=== PATIENT | female | born 1995 | race Caucasian/White ===

== ENCOUNTER 2021-05-03 13:39 | Outpatient (CLI) | payer BC, SELFPAY ==
--- NOTE | ~2021-05-03 | MMUS_ITS ---
EXAMINATION: MM diagnostic silvana BI w jami, US breast RT complete HISTORY: Palpable right breast lump TECHNIQUE: Additional 3-D tomosynthesis images of the breasts were performed and synthetic 2-D images were generated. CAD analysis was submitted and interpreted. High resolution complete right breast ul trasound was performed. COMPARISON: None BREAST PARENCHYMAL COMPOSITION: The breasts are heterogenously dense, which may obscure small masses. FINDINGS: MAMMOGRAPHIC FINDINGS: In the area of palpable concern in the mid outer aspect of the right breast, middle third there is a mass measuring approximately 1.7 cm. No suspicious calcifications or architectural distortion. There is a benign-appearing mass in the medial aspect of the left breast on CC view with central lucency, c ompatible with intramammary lymph node or cyst. ULTRASOUND: Complete right breast ultrasound: At 8:00, 8 cm from the nipple, there is an irregular shaped hypoech oic mass measuring 1.8 x 1.4 x 1.1 cm. There is mixed posterior attenuation. There is internal vascul arity. Parallel orientation. This corresponds to the mammographic finding. IMPRESSION: 1. Lobulated hypoechoic right breast mass at 8:00, 8 cm from the nipple measuring 1.8 cm greatest dim ension. 2. Ultrasound-guided right breast biopsy recommended. BI-RADS category 4, suspicious findings. Reviewed, dictated and finalized at location A. HOUSE SUPERVISOR IMPRESSION: 1. Lobulated hypoechoic right breast mass at 8:00, 8 cm from the nipple measuri ng 1.8 cm greatest dimension. 2. Ultrasound-guided right breast biopsy recommended. BI-RADS category 4, suspicious findings.
== END 2021-05-03 13:40 | disposition home or self-care (01) ==
LOC: ANHIMG 13:44
PROVIDERS: PCP Family Medicine; Visit Provider Family Medicine
DX: R92.8 Other abnormal and inconclusive findings on diagnostic imaging of breast (principal)
CPT/HCPCS: 76641; 77062; 77066; G0279

== ENCOUNTER 2021-05-16 09:57 | Outpatient (CLI) | payer BC, SELFPAY ==
--- NOTE | ~2021-05-16 | MMUS_ITS ---
EXAMINATION: US breast biopsy RT w image, MM post biopsy invasive RT DATE: 05/16/2021 11:06 (accession [id number]), 05/16/2021 11:04 (accession [id number]) INDICATION: Indeterminate mass at 8:00 location of the right breast. Ultrasound-guided core biopsy is requested to evaluate for malignancy. TECHNIQUE AND FINDINGS: The risks and potential benefits of the procedure were discussed with the patient including bleeding and infection. A time out was performed. The skin of the right breast was prepared and draped in usua l sterile fashion. 1% lidocaine was used for superficial anesthesia. 1% lidocaine with epinephrine wa s used for deep anesthesia. A vacuum-assisted biopsy gun needle was advanced through to the outer edge of the region of interest from an inferior approach utilizing sonographic guidance. A total of five tissue core samples were ob tained through the lesion. A tissue marker clip was then placed at the biopsy site. Hemostasis was ac hieved. A sterile bandage was applied. The patient tolerated procedure well and there was no evidence of immediate complication. The patient was given verbal instructions to return to the Emergency Department in the event of severe breast pa in or rapid breast enlargement. A two view right breast mammogram was obtained to document tissue mar ker clip placement. IMPRESSION: 1. Successful ultrasound-guided vacuum-assisted biopsy of right breast mass with tissue marker placem ent. Reviewed, dictated and finalized at location A. LAGE CLERK IMPRESSION: 1. Successful ultrasound-guided vacuum-assisted biopsy of right breast mass wit h tissue marker placement.
== END 2021-05-16 09:58 | disposition home or self-care (01) ==
LOC: ANHIMG 10:01
PROVIDERS: PCP Family Medicine; Visit Provider Family Medicine
DX: N63.10 Unspecified lump in the right breast, unspecified quadrant (principal)
CPT/HCPCS: 19083; 88305; A4648

== ENCOUNTER 2025-04-28 12:09 | Emergency (ER) | payer BC, SELFPAY ==
--- NOTE | ~2025-04-28 | US_ITS ---
EXAMINATION: US OB <=14 wk fetus w TV DATE: 04/28/2025 14:24 INDICATION: of indeterminate location TECHNIQUE: Real-time pelvic ultrasound utilizing both a transvaginal and transabdominal probe was performed. The interpreting radiologist was not present for the study. COMPARISON: None. FINDINGS: The uterus measures 8.0 x 4.6 x 5.4 cm. There is an intrauterine gestational sac with double deciduous sign. There is a peripheral 1 mm echogenic focus within the gestational sac which could represent a small pole and/or yolk sac. The mean sac diameter measures 5 mm, which correlates with an estimated gestational age of 5 weeks and 2 days. There is a 1.8 cm hypoechoic subserosal fibroid along the posterior aspect of the mid uterine body. There is a second 1.6 similar hypoechoic fibroid at the left anterior uterine fundus. Trace amount of anechoic fluid within the endocervical canal which measures 2.6 cm in length. The right ovary measures 2.5 x 2.3 x 1.6 cm. The left ovary measures 3.6 x 1.8 x 2.9 cm. Vascular flow identified in both ovaries on color Doppler. There is no free fluid in the pelvis. IMPRESSION: 1. Single intrauterine gestational sac with possible 1 mm pole. 2. Gestational age by ultrasound based upon 5 mm mean sac diameter of 5 weeks 2 day(s) +/- 3 day(s) with ultrasound estimated date of delivery (MAMIE) of 12/27/2025. 3. A couple uterine fibroids. Reviewed, dictated and finalized at location A. YARD ELECTRICAL PERSON IMPRESSION: 1. Single intrauterine gestational sac with possible 1 mm pole. 2. Gestational age by ultrasound based upon 5 mm mean sac diameter of 5 weeks 2 day(s) +/- 3 day(s) with ultrasound estimated date of delivery (MAMIE) of 12/28/19 26. 3. A couple uterine fibroids.
[2025-04-28 12:39] VITALS: BP 147/94; PULSE 85; RESP 18; TEMP 36.4; O2SAT 100
[2025-04-28 12:55] LABS: BEDSIDEPREGUCG Positive (Negative)
--- OUTSIDE RECORDS SUMMARY | 2025-04-28 12:57 | XMS_ITS | Clinical Summary ---
Author Organization [facility] [employer] Address [address] [place] [address] Care Team Providers Care Instructional Systems Specialist Name Role Phone Roma Ballard MD Primary Care Provider Source Comments [facility],non-owned Affiliates and Associated Physician Practices is amultiple site organization consisting of ambulatory clinics and hospital sitesin [place], [place], [place] and [place]. This disclosure is being madepursuant to the Care Everywhere program and may not contain all information available regarding this patient. Last updated 18.[facility] Allergies Active Allergy Reactions Criticality Noted Date Comments Other Anaphylaxis,Itching, Eye Itching High 07/30/2010 Grass, dust mites, animals, pollen Medications * Be aware that medications may not be up to date on this document. Alwaysverify current medications with the patient. guaifenesin-code ine (ROBITUSSIN AC) 100-10 MG/5ML syrup Take 10 mL by mouth every 6 hours as needed for Cough. 240 mL 0 07/31/2010 Active Active Problems Problem Noted Date Diagnosed Date Pneumomediastinum 07/30/2010 Overview (07/31/2010): Assessment: 15yo Female with h/o asthma with spontaneous pneumomediastinum reported on OSH CXR. Clinically hemodynamically stable upon arrival. Did well overnight without acute events. Remains stable. CP stable. Still no crepitus on exam. CXR this AM continues to demonstrate mediastinal air (not large amount). Plan: Continue Albuterol PRN at home PFTs/ peak flows should be done in 1 month Consider need for pulm consult if recurs. Family History Medical History Relation Name Comments Asthma Father Other Father h/o pleurisy as a child Diabetes Maternal Grandfather Eczema Other Relation Name Status Comments Father Maternal Grandfather Other Social History Tobacco Use Types Packs/Day Years Used Date Smoking Tobacco: Never Assessed Comments Unknown Sex and Gender Information Value Date Recorded Sex Assigned at Not on file Legal Sex Female 10:05 AM GOVERNMENT AUDITOR Gender Identity Not on file Sexual Orientation Not on file Last Filed Vital Signs Vital Sign Reading Time Taken Comments Blood Pressure 98/60 07/31/2010 7:35 AM GOVERNMENT AUDITOR Pulse 62 07/31/2010 7:35 AM GOVERNMENT AUDITOR Temperature 36.2 C (97.2 F) 07/31/2010 7:35 AM GOVERNMENT AUDITOR Respiratory Rate 18 07/31/2010 7:35 AM GOVERNMENT AUDITOR Oxygen Saturation 100% 07/31/2010 7:35 AM GOVERNMENT AUDITOR Inhaled Oxygen Concentration - - Weight 66.5 kg (146 lb 9.6 oz) 07/30/2010 6:00 P M GOVERNMENT AUDITOR Height 159 cm (5' 2.6) 07/30/2010 6:00 PM GOVERNMENT AUDITOR Body Mass Index 26.3 07/30/2010 6:00 PM GOVERNMENT AUDITOR Plan of Treatment Health Maintenance Due Date Last Done Comments HIV SCREENING 02/17/2008 HEPATITIS C SCREENING 02/12/2011 DTAP/TDAP/TD VACCINES (1 - Tdap) 02/17/2012 HEPATITIS B VACCINE (1 of 3 - 19+ 3-dose series) 02/17/2012 PAP SMEAR 2014 HPV VACCINE (1 - 3-dose SCDM series) 02/17/2020 Cervical Cancer Screening 2023 PAP with HPV 2023 DEPRESSION SCREENING 05/28/2024 COVID-19 VACCINE ( - 2024-2 6 season) 2025 INFLUENZA VACCINE (#1) 2025 ZOSTER VACCINE (1 of 2) 2043 HIB VACCINE Aged Out No longer eligi ble based on patient's age to complete this topic MENINGOCOCCAL (Group B) VACC INE SHARED DECISION-MAKING Aged Out No longer eligibl e based on patient's age to complete this topic MENINGOCOCCAL GROUPS A/C/Y/W VACCINE Aged Out No longer eligible b ased on patient's age to complete this topic PNEUMOCOCCAL VACCINE Aged Out No long er eligible based on patient's age to complete this topic Care Teams Instructional Systems Specialist Relationship Specialty Start Date End Date Roma Ballard MD [address] [place] [address] PCP - General 07/30/10
--- OUTSIDE RECORDS SUMMARY | 2025-04-28 12:57 | XMS_ITS | Clinical Summary ---
Author Organization [facility] Address [address] [place] [id number] Care Team Providers Care Cake Puncher Name Role Phone Unavailable Primary Care Provider Unavailabl e Social History Tobacco Use Types Packs/Day Years Used Date Smoking Tobacco: Never Assessed Comments Unknown Sex and Gender Information Value Date Recorded Sex Assigned at Not on file Legal Sex Female 3:03 PM ENVIRONMENTAL REMEDIATION CONSULTANT Gender Identity Not on file Sexual Orientation Not on file Plan of Treatment Health Maintenance Due Date Last Done Comments Hepatitis C Virus (HCV) Screening 1993 Hepatitis B Immunization (1 of 3 - 19+ 3-dose series) 02/17/2012 Pap Smear 2014 Human Papillomavirus (HPV) Immunization (1 - 3-dose SCDM series) 02/17/2020 Cervical Cancer Screening (CCS) 2023 HPV/Cotest 2023 Influenza Immunization (#1) 2025 SARS-COV-2 Immunization ( season) 2025 Respiratory Syncytial Virus (RSV) Immunization (Adult) (1 - 1-dose 75+ series) 02/17/2068 DTaP/Tdap/Td Immunization Discontinued 12/20/2017 TdaP Immunization Completed 12/20/2017 Meningococcal Immunization (ACWY) Aged Out No longer eligible based on patient's age to complete this topic Pneumococcal Immunization Combined Aged Out No longer eligible based on patient's age to complete this topic Rotavirus Immunization Aged Out No lo nger eligible based on patient's age to complete this topic
[2025-04-28 13:06] LABS: Add Urine Microscopic? YES; Appearance Urine Clear (Clear); Glucose Urine UA Negative (Negative); Leukocyte Esterase Ur Negative LEU/UL (Negative); Nitrate Urine Negative (Negative); Non Pathogenic Casts 0-2; Specific Grav Ur 1.015 (1.001-1.035)
--- NOTE | 2025-04-28 13:11 | ED.FEMALEGU ---
HPI - Female Genitourinary General Chief complaint: Vaginal Bleeding Stated complaint: vaginal bleeding 6-7 weeks Time Seen by Provider: 04/28/25 12:51 Source: patient and family ( Kirk) Mode of arrival: ambulatory Limitations: no limitations History of Present Illness HPI Narrative: 30yo female presents with vaginal bleeding. She reports that she is 6-7 weeks . Her last menstrual period was 03/11/2025. Her Ob Gyne is Dr. Pacheco although she has not seen her for this yet. She had an appointment coming up in a few weeks on 05/08 however this was moved to tomorrow morning. is based on a home test. Patient has not had confirmation of intrauterine with ultrasound testing and she has not had a PDA hCG. She has taken no medications prior to arrival but she states that 2-3 days ago she started having light pink bleeding and then today started having heavier bleeding with some clots. This is associated with some crampy abdominal pain in the left lower quadrant. Related Data Home Medications ?Medication ?Instructions ?Recorded ?Confirmed ?Last Taken ?Type loratadine 10 mg tablet 10 mg PO DAILY 09/15/22 01/10/24 Unknown History Allergies Allergy/AdvReac Type Severity Reaction Status Date / Time No Known Allergies Allergy Verified 04/28/25 12:42 [facility] Past Medical History Medical History Allergic rhinitis Mild persistent asthma Social History Social History Social History: ; spouse Kirk Smoking status: Never smoker Alcohol intake: current Drinks per week: 5 Substance use: never Substance use type: does not use Lack of Transportation: No Lack of Food: Never True Current Housing: I Have Housing Concerned About Future Housing: No Difficulty Paying Gas/Electric Bills: No Difficulty Paying for Meds: No Currently Unemployed: No Difficulty w/ Childcare or Family Care: No Living arrangements: with family Additional living arrangements comments: Occupation/Education: occupation Gender identity (if verbalized by the patient): Female Sexual Orientation (if Verbalized by the Patient): Straight or Heterosexual Spiritual care concerns: No Exam Narrative: GENERAL: Well-appearing, well-nourished, and in no acute distress. HEAD: Normocephalic, atraumatic. EYES: Non injected, non icteric ENT: Nares clear, no rhinorrhea or epistaxis. Gross auditory acuity intact. NECK: Supple. No meningismus. CHEST: Speaking in full sentences. No respiratory distress. HEART: Regular rate and rhythm. . ABDOMEN: Soft, nondistended. No rigidity or guarding. Not peritoneal EXTREMITIES: Normal range of motion. No lower extremity edema. SKIN: Warm, dry, no rash. NEURO: No focal deficits. Alert and oriented. Answering questions. Following commands. Normal speech without aphasia or dysarthria. PSYCH: Normal mood and affect. Course Vital Signs Vital signs: Vital Signs Temperature 97.6 F 04/28/25 12:39 Pulse Rate 85 04/28/25 12:39 Respiratory Rate 18 04/28/25 12:39 Blood Pressure 147/94 H 04/28/25 12:39 Pulse Oximetry 100 04/28/25 12:39 Oxygen Delivery Room Air 04/28/25 12:39 Temperature 97.6 F 04/28/25 12:39 Pulse Rate 84 04/28/25 16:13 Respiratory Rate 17 04/28/25 16:13 Blood Pressure 125/83 04/28/25 16:13 Pulse Oximetry 100 04/28/25 16:13 Oxygen Delivery Room Air 04/28/25 12:39 MDM MDM Narrative Medical decision making narrative: This patient is a 30 yo G 1 P 0 reported 6w6d GA (based on stated LMP 03/11/25) female who comes to the emergency department with vaginal bleeding. In the emergency department she is afebrile and hemodynamically stable but vital signs notable for hypertension. Repeat BP ordered. It does show some improvement in systolic BP but diastolic remains elevated. Hematuria and trace ketonuria in urine but otherwise without signs of infection. Type and screen and serum beta hCG (quantitative) are ordered. Ultrasound imaging was performed before serum quant results but Beta-hCG is >4,500, well above the discriminatory zone. US as below. CBC without leukocytosis, anemia, thrombocytopenia. She does have AST and ALT elevation with no prior for comparison at this will need to be continued to be monitored. No proteinuria. O positive blood type (and gestational age <12 weeks regardless). Discussed findings with patient and discussed that this may represent normal bleeding however threatened miscarriage still possible. Of note, This is also possible based on the discrepancy between patients stated gestational age by LMP and the presence of gestational sac but with dates more consistent with 5week 2 days +/- 3 days. Will defer pelvic exam given she has an appointment with Dr Pacheco tomorrow morning. She notes the bleeding had let up but then she had a bit more after the transvaginal ultrasound. Has only gone through 1 maxi pad however. Strict ED return precautions were given and patient verifies understanding. Provided Rx for vitamin and APAP. Differential Diagnosis Differential Diagnosis: , spectrum of miscarriage, ectopic Lab Data [facility] Lab Attestation statement: I personally reviewed the patient's lab results. 04/28/25 14:44 04/28/25 14:44 Labs: Lab Results 04/28/25 04/28/25 04/28/25 Range/Units 12:48 12:54 14:44 WBC 6.9 (4.5-10.0) K/mm3 RBC 3.97 L (4.2-5.4) M/mm3 Hgb 12.7 (12.0-15.0) g/dL Hct 38.0 (37.0-47.0) % MCV 95.7 (80-100) fl MCH 32.0 (26-34) pg MCHC 33.4 (32-36) g/dl RDW 11.5 (11.5-14.5) % Plt Count 276 (150-375) k/mm3 MPV 10.2 (7.4-10.4) fl Immature Gran % (Auto) 0.6 H (0-0.5) % Neut % (Auto) 67.9 (45.5-73.1) % Lymph % (Auto) 20.6 (18.3-44.2) % Coal % (Auto) 6.8 (2.6-8.5) % Eos % (Auto) 3.2 (0-4.4) % Baso % (Auto) 0.9 (0.2-1.2) % Lymph # (Auto) 1.43 (0.9-3.2) K/mm3 Coal # (Auto) 0.5 (0.1-0.6) K/mm3 Eos # (Auto) 0.2 (0-0.3) K/mm3 Baso # (Auto) 0.1 (0.0-0.1) K/mm3 Abs Immat Gran (auto) 0.04 H (0.00-0.031) K/mm3 Absolute Neuts (auto) 4.7 (1.3-6.7) K/mm3 Absolute Nucleated RBC 0.000 (0.0-0.012) K/mm3 Nucleated RBC % 0.0 (0.0-0.2) % PT 13.9 (11.1-14.7) Seconds INR 1.1 APTT 31.7 (22.3-36.8) Seconds Sodium 136 L (137-145) mmol/L Potassium 3.8 (3.4-5.0) mmol/L Chloride 105 (98-107) mmol/L Carbon Dioxide 23 (22-30) mmol/L Anion Gap 8 (4-12) mmol/L BUN 6 L (7-17) mg/dL Creatinine 0.68 L (0.7-1.0) mg/dL Estim Creat Clear Calc 102 ml/min Estimated GFR > 60 (59 - ) Glucose 90 (65-110) mg/dL Calcium 9.9 (8.4-10.2) mg/dL Total Bilirubin 0.5 (0.2-1.3) mg/dL AST 62 H (14-36) U/L ALT 72 H (6-35) U/L Alkaline Phosphatase 78 (38-126) U/L Total Protein 8.1 (6.3-8.2) g/dL Albumin 4.9 (3.5-5.1) g/dL Beta HCG, Quant 4516.90 mIU/ML Urine Color Yellow (Yellow) Urine Appearance Clear (Clear) Urine pH 6.0 (5.0-9.0) Ur Specific [place] 1.015 (1.001-1.035) Urine Protein Negative (Negative) mg/dL Urine Glucose (UA) Negative (Negative) mg/dL Urine Ketones 1+ H (Negative) mg/dL Ur Blood (Man) 3+ H (Negative) Urine Nitrate Negative (Negative) Urine Bilirubin Negative (Negative) Urine Urobilinogen 0.2 (<2.0) mg/dL Leukocyte Esterase Rfl Negative (Negative) BHAVNA/UL Urine RBC 3-5 H (0-2) /hpf Urine WBC 0-5 (0-3) /hpf Ur Squamous Epith Cells None seen (Few) /hpf Urine Bacteria None seen /hpf Urine Casts 0-2 POC Urine HCG, Qual Positive (Negative) Blood Type O Positive Antibody Screen Negative Imaging Data Radiologist's impression: ITS Impressions Obstetrics Ultrasound 04/28/25 14:31 IMPRESSION: 1. Single intrauterine gestational sac with possible 1 mm pole. 2. Gestational age by ultrasound based upon 5 mm mean sac diameter of 5 weeks 2 day(s) +/- 3 day(s) with ultrasound estimated date of delivery (MAMIE) of 12/27/2025. 3. A couple uterine fibroids. Discharge Plan Discharge Clinical Impression: Confirmed intrauterine on ultrasound, Vaginal bleeding in patient at less than 20 weeks gestation, Elevated AST (SGOT), Elevated ALT measurement Patient Disposition: Home Condition: Stable Instructions: Antibiotic Form, Threatened Miscarriage (ED), (ED), Abdominal Pain in (ED), Transaminitis (ED) Additional Instructions: Gestational age by ultrasound based upon 5 mm mean sac diameter of 5 weeks 2 day(s) +/- 3 day(s) with ultrasound estimated date of delivery (MAMIE) of 12/27/2025. Keep your scheduled appointment with Dr Pacheco tomorrow. Return to the ED if signs of bleeding as we discussed: saturating 2 maxi pads an hour for 2-3 hours, intractable pain not responding to Tylenol (safe to take during , maximum 4000mg), fever >100.4F, fainting/nearly passing out. Take vitamins. Will need to follow up on your slightly elevated liver enzymes. Patient Language: Estonian Prescriptions: New acetaminophen 500 mg capsule 1,000 mg PO Q6H PRN (Reason: pain) Qty: 30 0RF PNV no.154-iron fumarate-folic 27 mg iron- 1 mg tablet 1 tablet PO DAILY Qty: 30 0RF No Action loratadine 10 mg tablet 10 mg PO DAILY montelukast 10 mg tablet 10 mg PO DAILY Qty: 90 1RF fluticasone propion-salmeterol [Wixela Inhub] 250-50 mcg/dose blister with device 1 inh inhalation BID Qty: 60 6RF albuterol sulfate 90 mcg/actuation HFA aerosol inhaler See Rx Instructions .ROUTE .COMPLEX Qty: 8.5 0RF Dose Instruction: INHALE 1 PUFF BY MOUTH EVERY 4 HOURS NEEDED FOR SHORTNESS OF BREATH OR WHEEZING 30 16 Rx Instructions: INHALE 1 PUFF BY MOUTH EVERY 4 HOURS NEEDED FOR SHORTNESS OF BREATH OR WHEEZING 30 16 Follow-up/Referrals: Breezy Willard MD [Primary Care Provider, Family Practice] Margy Pacheco MD [Physician, COMMERCIAL PRODUCTION EDITOR] Stand Alone Forms: Work/School Release IP Time of Disposition: 16:14
[2025-04-28 13:32] VITALS: BP 130/94; PULSE 67; RESP 16; O2SAT 100
[2025-04-28] MEDS: ACETAMINOPHEN 500 MG TABLET 1000 MG PO (13:32)
--- OUTSIDE RECORDS SUMMARY | 2025-04-28 14:04 | XMS_ITS | Clinical Summary ---
Author Organization [facility] Address [address] [place] [id number] Care Team Providers Care Pie Cutter Name Role Phone Unavailable Primary Care Provider Unavailabl e Social History Tobacco Use Types Packs/Day Years Used Date Smoking Tobacco: Never Assessed Comments Unknown Sex and Gender Information Value Date Recorded Sex Assigned at Not on file Legal Sex Female 3:03 PM CLAM SHOVEL OPERATOR Gender Identity Not on file Sexual Orientation [...]
--- OUTSIDE RECORDS SUMMARY | 2025-04-28 14:04 | XMS_ITS | Clinical Summary ---
Author Organization [facility] [employer] Address [address] [place] [address] Care Team Providers Care Bee Robber Name Role Phone Roma Ballard MD Primary Care Provider Source Comments [facility],non-owned Affiliates and Associated Physician Practices is amultiple site organization consisting of ambulatory clinics and hospital sitesin [place], [place], [place] and [place]. This disclosure is being madepursuant to the Care Everywhere program and may not contain all information available regarding this patient. Last updated 18.[facility] Allergies Active Allergy Reactions Criticality Noted Date [...] on file Legal Sex Female 10:05 AM DIRECTOR CHINA Gender Identity Not on file Sexual Orientation Not on file Last Filed Vital Signs Vital Sign Reading Time Taken Comments Blood Pressure 98/60 07/31/2010 7:35 AM DIRECTOR CHINA Pulse 62 07/31/2010 7:35 AM DIRECTOR CHINA Temperature 36.2 C (97.2 F) 07/31/2010 7:35 AM DIRECTOR CHINA Respiratory Rate 18 07/31/2010 7:35 AM DIRECTOR CHINA Oxygen Saturation 100% 07/31/2010 7:35 AM DIRECTOR CHINA Inhaled Oxygen Concentration - - Weight 66.5 kg (146 lb 9.6 oz) 07/30/2010 6:00 P M DIRECTOR CHINA Height 159 cm (5' 2.6) 07/30/2010 6:00 PM DIRECTOR CHINA Body Mass Index 26.3 07/30/2010 6:00 PM DIRECTOR CHINA Plan of Treatment Health Maintenance Due Date [...] age to complete this topic Care Teams Bee Robber Relationship Specialty Start Date End Date Roma Ballard MD [address] [place] [address] PCP - General 07/30/10
[2025-04-28 15:14] LABS: Hematocrit 38.0 % (37.0-47.0); Hemoglobin 12.7 g/dL (12.0-15.0); Immature Granulocyte Percent A 0.6 % (0-0.5); Lymphocytes Absolute Auto 1.43 K/mm3 (0.9-3.2); Mean Corpuscular HGB Conc 33.4 g/dl (32-36); Mean Corpuscular Hemoglobin 32.0 pg (26-34); Mean Corpuscular Volume 95.7 fl (80-100); Nucleated Red Blood Cells Absolute Auto 0.000 K/mm3 (0.0-0.012); Nucleated Red Blood Cells Perc 0.0 % (0.0-0.2); Platelet Count Result 276 k/mm3 (150-375); Red Blood Count 3.97 M/mm3 (4.2-5.4); White Blood Count 6.9 K/mm3 (4.5-10.0)
[2025-04-28 15:27] LABS: Alanine Aminotransferase 72 U/L (6-35); Albumin Level 4.9 g/dL (3.5-5.1); Alkaline Phosphatase 78 U/L (38-126); Anion Gap 8 mmol/L (4-12); Aspartate Amino Transferase 62 U/L (14-36); Bilirubin,Total 0.5 mg/dL (0.2-1.3); Blood Urea Nitrogen 6 mg/dL (7-17); Calcium 9.9 mg/dL (8.4-10.2); Carbon Dioxide 23 mmol/L (22-30); Chloride 105 mmol/L (98-107); Estimated CRCL calculation 102 ml/min; Estimated Glomerular Filt Rate > 60; Glucose 90 mg/dL (65-110); Potassium 3.8 mmol/L (3.4-5.0); Sodium 136 mmol/L (137-145); Total Protein 8.1 g/dL (6.3-8.2)
[2025-04-28 15:34] LABS: INR 1.1; Prothrombin Time 13.9 Seconds (11.1-14.7)
[2025-04-28 15:35] LABS: Partial Thromboplastin Time 31.7 Seconds (22.3-36.8)
[2025-04-28 16:13] VITALS: BP 125/83; PULSE 84; RESP 17; O2SAT 100
== END 2025-04-28 16:23 | disposition home or self-care (01) ==
PROVIDERS: Emergency Provider Student in an Organized Health Care Education/Training Program; PCP Family Medicine
DX: O20.9 Hemorrhage in early pregnancy, unspecified (principal); O99.891 Other specified diseases and conditions complicating pregnancy; R74.01 Elevation of levels of liver transaminase levels; O99.511 Diseases of the respiratory system complicating pregnancy, first trimester; J45.30 Mild persistent asthma, uncomplicated; D25.9 Leiomyoma of uterus, unspecified; Z3A.01 Less than 8 weeks gestation of pregnancy
CPT/HCPCS: 36415; 76801; 76817; 80053; 81001; 81025; 84702; 85025; 85610; 85730; 86850; 86900; 86901; 99284; A9270

== ENCOUNTER 2025-05-01 09:49 | Outpatient (CLI) | payer BC, SELFPAY ==
--- NOTE | ~2025-05-01 | US_ITS ---
EXAMINATION: US OB transvaginal, 05/01/2025 10:10 CELL RELINER HISTORY: Spotting 1st trimester Comparison: 04/28/2025. Technique: Lemon-scale and color Doppler images were obtained. Findings: The uterus is anteverted measuring 7.9 x 4.4 x 5.6 cm. Endometrium 7 mm, there is no intrauterine gestational sac identified. There are multiple uterine fibroids the largest in the anterior uterine body 2 x 2 cm Right ovary 2.4 x 1.3 x 1.8 cm, left ovary 3.7 x 1.6 x 2.7 cm. There are no adnexal masses with normal flow bilaterally Minimal free fluid IMPRESSION: There is no intrauterine identified. Probable missed . Reviewed, dictated and finalized at location P. RELINER IMPRESSION: There is no intrauterine identified. Probable missed abor tion.
== END 2025-05-01 09:50 | disposition home or self-care (01) ==
LOC: MICIMG 09:50
DX: O26.851 Spotting complicating pregnancy, first trimester (principal); Z3A.00 Weeks of gestation of pregnancy not specified
CPT/HCPCS: 76817